=== PATIENT | female | born 1975 | race Caucasian/White ===

== ENCOUNTER 2017-03-22 11:39 | Outpatient (CLI) | payer OTHER ==
[2017-03-22] MEDS ORDERED: ONDANSETRON HCL/PF 4 MG/ 2ML VIAL ONE (12:00)
[2017-03-22] MEDS ORDERED: SALINE FLUSH 10 ML DISP.SYRIN IVF ONE (12:00)
[2017-03-22] MEDS ORDERED: LACTATED RINGERS 1,000 ML IV.SOLN IV ONE (12:00)
[2017-03-22 12:17] LABS: eGFR (African) > 60; eGFR (Non-African) > 60
[2017-03-24 07:43] LABS: ADENOVIRUS F 40/41 Not Detected (Not Detected); ASTROVIRUS Not Detected (Not Detected); C. DIFFICILE (TOXIN A/B) Not Detected (Not Detected); CRYPTOSPORIDIUM Not Detected (Not Detected); CYCLOSPORA CAYETANENSIS Not Detected (Not Detected); ENTAMOEBA HISTOLYTICA Not Detected (Not Detected); GIARDIA LAMBLIA Not Detected (Not Detected); ROTAVIRUS A Not Detected (Not Detected); SAPOVIRUS Not Detected (Not Detected); VIBRIO CHOLERAE Not Detected (Not Detected)
== END 2017-03-22 11:40 ==
LOC: INF 11:39
PROVIDERS: ATTEND Family Medicine
DX: K52.89 Other specified noninfective gastroenteritis and colitis (principal)
CPT/HCPCS: 80053; 87507; J2405; J7120; 96361; 96374; 96376; S1016

== ENCOUNTER → 2019-03-02 | Outpatient (CLI) | payer OTHER ==
[~2019-03-02] MED LIST: 0.9 % SODIUM CHLORIDE 2,000 ML IV ONE; ONDANSETRON HCL/PF 4 MG/ 2ML VIAL ONE
[2019-03-02 14:19] LABS: BASOPHILS % 0.5 % (0.0-1.5); NEUTROPHILS # 4.6 # k/uL (1.4-7.7)
[2019-03-02 14:52] LABS: eGFR (Non-African) > 60
[2019-03-02 15:33] LABS: APPEARANCE,URINE CLEAR (CLEAR); COLOR,URINE YELLOW (YELLOW); OCCULT BLOOD,URINE TRACE (NEGATIVE); UROBILINOGEN URINE 0.2 Eu (0.2-1.0)
--- NOTE | 2019-03-02 16:10 | Diagnostic Imaging Report ---
PATIENT MR#: [id number] PATIENT PATIENT NAME: HOANG BRISENO DATE OF : 1975 REFERRING PHYSICIAN: Rylee Marquez EXAM DATE: 03/02/2019 ACCESSION NUMBER: [id number] EXAM DESCRIPTION: US U OR L EXT VEINS UNILAT Examination: Ultrasound left vein History: LEFT CALF PAIN HISTORY: BACK SURGERY MID DECEMBER, PAIN RADIATING FROM LEFT BUTTOCKS TO CALF Findings: Sonographic evaluation of the left lower extremity venous system from the groin to the popl iteal fossa inclusive. Normal compressibility. No luminal filling defect. Normal waveforms and response to augmen tation. No popliteal region fluid collection. Impression: No evidence for deep venous thrombosis. Read by: Dr. Vasiliy West Transcribed by: Transcribed Date: Electronically signed by: Dr. Vasiliy Wets Date signed: 03/02/2019 4:09:20 PM
== END ==
LOC: INF 13:28
PROVIDERS: ATTEND Family Medicine
DX: E86.0 Dehydration (principal); M79.662 Pain in left lower leg
CPT/HCPCS: 80053; 81002; 85025; 93971; J2405; J7030; S1016